=== PATIENT | female | born 1935 | race Caucasian/White ===

== ENCOUNTER → 2017-02-25 | Outpatient (CLI) | payer MEDICARE, BC ==
[~2017-02-25] MED LIST: ASPI-611 PO; LISI-114 PO; MULT-806 PO; PANT40TA25 PO; SIMV20TA89 PO; UBID1CAP47 PO
== END ==
LOC: WC.BC 14:19
DX: Z12.31 Encounter for screening mammogram for malignant neoplasm of breast (principal); Z80.3 Family history of malignant neoplasm of breast
CPT/HCPCS: 77063; G0202